=== PATIENT | female | born 1995 | race Caucasian/White ===

== ENCOUNTER 2018-03-31 11:21 | Emergency (ER) | payer BC ==
[~2018-03-31] VITALS: Ht 170.2 cm; Wt 75.0 kg
[2018-03-31 11:29] VITALS: BP 117/61; TEMP 98.1
[2018-03-31] MEDS ORDERED: ATIVAN 0.50.5 MG/TAB PO (13:24)
[2018-03-31 13:32] VITALS: PULSE 61
== END 2018-03-31 13:32 | disposition home or self-care (01) ==
LOC: COL.ER 11:21
DX: S06.0X0A Concussion without loss of consciousness, initial encounter (principal); S00.33XA Contusion of nose, initial encounter; S00.83XA Contusion of other part of head, initial encounter; F31.9 Bipolar disorder, unspecified; F41.9 Anxiety disorder, unspecified; G47.00 Insomnia, unspecified; W50.0XXA Accidental hit or strike by another person, initial encounter; Y92.009 Unspecified place in unspecified non-institutional (private) residence as the place of occurrence of the external cause